=== PATIENT | female | born 1990 | race Caucasian/White ===

== ENCOUNTER 2016-10-05 08:34 | Emergency (ER) | payer MEDICAID, BC ==
[2010-01-28 19:28] VITALS: BMI 22.6
== END 2016-10-05 12:00 | disposition home or self-care (01) ==
LOC: D.ER 08:34
DX: M25.462 Effusion, left knee (principal); F31.9 Bipolar disorder, unspecified; F41.9 Anxiety disorder, unspecified; E03.9 Hypothyroidism, unspecified

== ENCOUNTER 2017-01-02 20:11 | Emergency (ER) | payer MEDICAID, BC ==
[2010-01-28 19:28] VITALS: BMI 22.6
== END 2017-01-02 21:20 | disposition home or self-care (01) ==
LOC: D.ER 20:11
DX: L73.9 Follicular disorder, unspecified (principal); F31.9 Bipolar disorder, unspecified; F32.9 Major depressive disorder, single episode, unspecified; F41.9 Anxiety disorder, unspecified; E03.9 Hypothyroidism, unspecified

== ENCOUNTER 2017-10-07 17:13 | Emergency (ER) | payer MEDICAID, BC ==
[2010-01-28 19:28] VITALS: BMI 22.6
== END 2017-10-07 19:08 | disposition home or self-care (01) ==
LOC: D.ER 17:13
DX: J11.1 Influenza due to unidentified influenza virus with other respiratory manifestations (principal); J02.9 Acute pharyngitis, unspecified; R05 Cough; R50.9 Fever, unspecified

== ENCOUNTER 2017-12-09 22:04 | Emergency (ER) | payer BC, MEDICAID ==
[2010-01-28 19:28] VITALS: BMI 22.6
== END 2017-12-09 23:15 | disposition home or self-care (01) ==
LOC: D.ER 22:04
DX: S90.122A Contusion of left lesser toe(s) without damage to nail, initial encounter (principal); W20.8XXA Other cause of strike by thrown, projected or falling object, initial encounter; Y93.89 Activity, other specified; Y92.019 Unspecified place in single-family (private) house as the place of occurrence of the external cause; E03.9 Hypothyroidism, unspecified

== ENCOUNTER 2017-12-19 20:07 | Emergency (ER) | payer BC, MEDICAID ==
[2010-01-28 19:28] VITALS: BMI 22.6
== END 2017-12-19 21:31 | disposition home or self-care (01) ==
LOC: D.ER 20:07
DX: S63.92XA Sprain of unspecified part of left wrist and hand, initial encounter (principal); W23.0XXA Caught, crushed, jammed, or pinched between moving objects, initial encounter; Y93.89 Activity, other specified; Y92.89 Other specified places as the place of occurrence of the external cause

== ENCOUNTER 2018-03-28 15:15 | Emergency (ER) | payer BC ==
[~2018-03-28] VITALS: Ht 160 cm; Wt 90.0 kg
[2018-03-28 15:21] VITALS: Ht 160 cm; Wt 90.0 kg
[2018-03-28] MEDS ORDERED: LEVOTHYROXINE50 MCG PO (15:22)
[2018-03-28] MEDS ORDERED: PROZAC20 MG PO (15:22)
[2018-03-28] MEDS ORDERED: ABILIFY2 MG PO (15:23)
[2018-03-28] MEDS ORDERED: CLEOCIN HCL300 MG PO (16:37)
[2018-03-28] MEDS ORDERED: ULTRAM50 MG PO (16:57)
[2018-03-28 17:52] VITALS: BP 125/70
== END 2018-03-28 17:28 | disposition home or self-care (01) ==
LOC: D.ER 15:15
DX: L02.31 Cutaneous abscess of buttock (principal)

== ENCOUNTER 2018-11-20 00:34 | Observation (INO) | payer BC ==
[~2018-11-20] VITALS: Ht 160 cm; Wt 81.4 kg
[~2018-11-20 00:34] MED LIST: ABILIFY2 MG PO; CLEOCIN HCL300 MG PO; LEVOTHYROXINE50 MCG PO; PROZAC20 MG PO; ULTRAM50 MG PO
[2018-11-20 00:56] LABS: BASOPHILS 0.5 % (0-2); EOSINOPHILS 3.3 % (0-7); HEMATOCRIT 42.1 % (36.0-48.0); HEMOGLOBIN 14.6 g/dL (12-16); IMMATURE GRANULOCYTES 0.4 % (0-5); LYMPHOCYTES 24.7 % (15-50); MCH 30.2 pg (26.0-34.0); MCHC 34.7 g/dL (31.0-37.0); MCV 87.2 fL (80.0-100.0); MEAN PLATELET VOLUME 9.6 fL (7.4-10.4); NEUTROPHILS 64.1 % (40-80); RBC 4.83 10x6/uL (4.00-5.40); RDW 12.3 % (11.5-14.5); WBC 10.7 10x3/uL (4.8-10.8)
[2018-11-20 01:02] LABS: PLATELET COUNT 249 10x3/uL (130-400)
[2018-11-20 01:13] LABS: ALKALINE PHOSPHATASE 106 U/L (46-116); ALT (SGPT) 90 U/L (10-68); BILIRUBIN - TOTAL 0.24 mg/dL (0.2-1.3); CALC OSMOLALITY 287 mosm/kg (275-300); CALCIUM 9.3 mg/dL (8.5-10.1); CARBON DIOXIDE 26.1 mmol/L (21.0-32.0); CHLORIDE - SERUM 105 mmol/L (98-107); CREATININE - SERUM 0.8 mg/dL (0.6-1.3); POTASSIUM - SERUM 3.9 mmol/L (3.5-5.1); PROTEIN - SERUM 7.9 g/dL (6.4-8.2); SODIUM 141 mmol/L (136-145); UREA NITROGEN 18 mg/dL (7-18); eGFR NON AFRICAN AMERICAN 90 mL/min (90-120)
[2018-11-20 01:14] LABS: GLUCOSE 182 mg/dL (74-106)
[2018-11-20 02:35] VITALS: BP 146/72; BMI 31.9
[2018-11-20 04:00] VITALS: BP 140/72
[2018-11-20 07:58] VITALS: BP 139/72
--- NOTE | 2018-11-20 08:03 | NUR ---
RECIEVED BEDSIDE REPORT. AM ROUNDS COMPLETED. VSS, AAOX3, NO S/S OF DISTRESS, RR EVEN AND UNLABORED. PT C/O NOT GETTING ENOUGH SLEEP LAST NIGHT AND STATES THAT SHE WOULD LIKE TO SPEAK WITH THE MD. PT DENIES ANY FURTHER NEEDS AT THE MOMENT. WILL CPOC. CL IN REACH, BED IN LOW, SR UP X2.
[2018-11-20 13:13] VITALS: Ht 160 cm; Wt 81.4 kg
[2018-11-20 13:34] VITALS: BP 130/74
[2018-11-20 16:00] VITALS: BP 134/83
--- NOTE | 2018-11-20 17:00 | NUR ---
FAMILY MEMBER BROUGHT DINNER FOR PT. PT CURRENTLY SITTING UP IN BED. DENIES ANY FURTHER NEEDS AT THIS TIME. CL IN REACH, BED IN LOW.
--- NOTE | 2018-11-20 19:45 | NUR ---
PT ALERT AND ORIENTED X4. PT DENIES ANY PAIN OR NEEDS AT THIS TIME. BED LOW CALL LIGHT WITHIN REACH. AT BEDSIDE. WILL CONTINUE TO MONITOR.
--- NOTE | 2018-11-20 21:02 | NUR ---
PT BROUGHT PT FOOD. NO S/S OF DISTRESS. VS STABLE. BED LOW CALL LIGHT WITHIN REACH. WILL CONTINUE TO MONITOR.
[2018-11-21 00:36] VITALS: BP 117/59
--- NOTE | 2018-11-21 00:48 | NUR ---
PT RESTING IN BED RR EVEN AND UNLABORED. PT RUNNING [address] ON TELEMETRY. PT DENIES ANY PAIN OR NEEDS AT THIS TIME. BED LOW CALL LIGHT WITHIN REACH. WILL CONTINUE TO MONITOR.
--- NOTE | 2018-11-21 02:26 | NUR ---
I AGREE WITH POWERHOUSE ENGINEER ASSESSMENT THIS SHIFT.
[2018-11-21 05:26] VITALS: BP 118/64
[2018-11-21 07:00] LABS: BASOPHILS 0.1 % (0-2); EOSINOPHILS 0 % (0-7); HEMATOCRIT 40.9 % (36.0-48.0); HEMOGLOBIN 14.2 g/dL (12-16); IMMATURE GRANULOCYTES 0.4 % (0-5); LYMPHOCYTES 8.8 % (15-50); MCH 30.5 pg (26.0-34.0); MCHC 34.7 g/dL (31.0-37.0); MEAN PLATELET VOLUME 9.8 fL (7.4-10.4); MONOCYTES 3.4 % (2-11); NEUTROPHILS 87.3 % (40-80); PLATELET COUNT 284 10x3/uL (130-400); RBC 4.65 10x6/uL (4.00-5.40); RDW 12.5 % (11.5-14.5)
[2018-11-21 07:11] LABS: WBC 14.5 10x3/uL (4.8-10.8)
[2018-11-21 07:35] LABS: ALBUMIN 3.7 g/dL (3.4-5.0); ALKALINE PHOSPHATASE 85 U/L (46-116); ALT (SGPT) 98 U/L (10-68); BILIRUBIN - TOTAL 0.48 mg/dL (0.2-1.3); CARBON DIOXIDE 19.7 mmol/L (21.0-32.0); CHLORIDE - SERUM 101 mmol/L (98-107); CREATININE - SERUM 0.9 mg/dL (0.6-1.3); POTASSIUM - SERUM 3.9 mmol/L (3.5-5.1); PROTEIN - SERUM 7.7 g/dL (6.4-8.2); SODIUM 136 mmol/L (136-145); UREA NITROGEN 17 mg/dL (7-18); eGFR NON AFRICAN AMERICAN 79 mL/min (90-120)
[2018-11-21 07:36] LABS: CALC OSMOLALITY 286 mosm/kg (275-300); GLUCOSE 333 mg/dL (74-106)
--- NOTE | 2018-11-21 08:04 | NUR ---
RESTING QUIETLY IN BED, ALERT, ORIENTED X 3, DENIES PAIN AND NEEDS, CALL LIGHT WITHIN REACH, INSTRUCTED TO CALL WITH NEEDS.
[2018-11-21 08:51] VITALS: BP 118/70
[2018-11-21 13:34] VITALS: BP 124/86
--- NOTE | 2018-11-21 15:20 | NUR ---
DISCHARGE TEACHING DONE, NO NEW PRESCRIPTIONS NOTED, PATIENT INSTRUCTED TO F/U WITH PCP IN ONE WEEK WITH PATIENT VOICING UNDERSTANDING. PERSONAL BELONGINGS RETURNED TO PATIENT, PATIENT DISCHARGED FROM FACILITY, PERSONAL AUTO IN PARKING LOT. PATIENT ALERT, ORIENTED, AMBULATORY. PATIENT DENIED NEED FOR SOMEONE TO DRIVE HER HOME AND STATED THAT SHE WOULD DRIVE SELF. NO S/S DISTRESS, DENIES PAIN, NO DYSPNEA OR FURTHER ISSUES NOTED.
--- NOTE | 2018-11-22 13:59 | MORECARE ---
CASE MANAGEMENT DISCHARGE SUMMARY PATIENT: SIMRAN SAL UNIT: [id number] ADM DATE: 11/20/18 AGE: 28 : [birth year] SEX: F ROOM/BED: D.1211 AUTHOR: FLOR HITCHCOCK PHYSICIAN: REFERRING PHYSICIAN: VEENA PERSAUD MD DATE OF SERVICE: 11/22/18 Discharge Plan Patient Name: SIMRAN SAL Facility: [facility]:[place] : 1990 Planned Disposition: Home Anticipated Discharge Date: 11/21/18 Discharge Date: 11/21/2018 Expected LOS: 1 Initial Reviewer: [email or web address] Initial Review Date: 11/20/2018 Generated: 11/22/18 2:59 pm Patient Name: SIMRAN SAL Page [id number] at 1359 All edits/amendments must be made on the electronic document DICTATION DATE: 11/22/18 1359 ENGINE WIPER: DM 11/22/18 1359 RPT#: [id number] DC DATE:11/21/18 STATUS: DIS IN [facility] [address] [place] [address] END OF REPORT
== END 2018-11-21 15:33 | disposition home or self-care (01) ==
LOC: D.ER 00:34 → D.M3 01:59 → OBSVTIME 01:59 → D.M3 11-21 15:33
PROVIDERS: Family Medicine; ADMIT Internal Medicine Nephrology; ATTEND Internal Medicine Nephrology
DX: T78.3XXA Angioneurotic edema, initial encounter (principal); E27.40 Unspecified adrenocortical insufficiency; F32.9 Major depressive disorder, single episode, unspecified; F41.9 Anxiety disorder, unspecified

== ENCOUNTER 2018-12-24 21:35 | Emergency (ER) | payer BC ==
[2018-12-24 21:50] VITALS: Ht 160 cm
[2018-12-24] MEDS ORDERED: IBUPROFEN800 MG PO (23:03)
[2018-12-24] MEDS ORDERED: CYCLOBENZAPRINE10 MG PO (23:03)
[2018-12-24] MEDS ORDERED: ACETAMINOPHEN500 M1 PO (23:03)
[2018-12-24 23:21] VITALS: BP 120/80
== END 2018-12-24 23:21 | disposition home or self-care (01) ==
LOC: D.ER 21:35
DX: S93.401A Sprain of unspecified ligament of right ankle, initial encounter (principal); W18.30XA Fall on same level, unspecified, initial encounter; Y93.89 Activity, other specified; Y92.89 Other specified places as the place of occurrence of the external cause; M25.571 Pain in right ankle and joints of right foot

== ENCOUNTER 2019-03-03 13:03 | Observation (INO) | payer BC ==
[~2019-03-03] VITALS: Ht 160 cm; Wt 89.5 kg
[2019-03-03] VITALS (7 sets, daily range): BP systolic 119–152; BP diastolic 64–89; Ht 160 cm; Wt 89.5 kg
[~2019-03-03 13:03] MED LIST changes: +ACETAMINOPHEN500 M1 PO; +CYCLOBENZAPRINE10 MG PO; +IBUPROFEN800 MG PO
[2019-03-03 13:29] LABS: BASOPHILS 0.4 % (0-2); HEMATOCRIT 41.1 % (36.0-48.0); HEMOGLOBIN 14.7 g/dL (12-16); IMMATURE GRANULOCYTES 0.2 % (0-5); LYMPHOCYTES 13.8 % (15-50); MCH 30.2 pg (26.0-34.0); MCHC 35.8 g/dL (31.0-37.0); MCV 84.4 fL (80.0-100.0); MEAN PLATELET VOLUME 9.4 fL (7.4-10.4); MONOCYTES 7.6 % (2-11); PLATELET COUNT 265 10x3/uL (130-400); RBC 4.87 10x6/uL (4.00-5.40); RDW 11.9 % (11.5-14.5); WBC 13.5 10x3/uL (4.8-10.8)
[2019-03-03 13:51] LABS: ALBUMIN 4.4 g/dL (3.4-5.0); ANION GAP 15.6 mmol/L (8-16); BILIRUBIN - TOTAL 0.63 mg/dL (0.2-1.3); CALCIUM 10.7 mg/dL (8.5-10.1); CARBON DIOXIDE 23.2 mmol/L (21.0-32.0); POTASSIUM - SERUM 3.8 mmol/L (3.5-5.1); PROTEIN - SERUM 8.1 g/dL (6.4-8.2)
[2019-03-03 15:06] LABS: HCG URINE NEGATIVE (NEGATIVE)
[2019-03-03 15:20] LABS: APPEARANCE CLEAR (CLEAR); BILIRUBIN NEGATIVE (NEGATIVE); COLOR YELLOW (YELLOW); GLUCOSE NEGATIVE (NEGATIVE); KETONE NEGATIVE (NEGATIVE); NITRITE NEGATIVE (NEGATIVE); PROTEIN NEGATIVE (NEGATIVE); SPECIFIC GRAVITY 1.015 (1.005-1.020); UROBILINOGEN NORMAL (NORMAL)
--- NOTE | 2019-03-03 17:02 | NUR ---
RUBEN MEEHAN FROM OR HERE. PT TRANSPORTED TO OR STABLE. NS INFUSING W/O UPON TX. ALL COMPLETED CONSENTS SENT WITH PT
--- NOTE | 2019-03-03 19:30 | NUR ---
PT TO FLOOR. IN ROOM WITH FAMILY. STATES PAIN IS TOLERABLE BUT RATES 8/10 AT THIS TIME. SCD'S ON BILATERALLY. VSS. RIGHT AC IV INFUSING. PATENT WITH DRESSING ADHERED TO SKIN. DENIES FURTHER NEEDS AT THIS TIME. INSTRUCTED HOW TO USE CALL LIGHT. PATIENT PROVIDES RETURN DEMONSTRATION. EDUCATION PROVIDED ON SPLINTING, EARLY AMBULATION. GOAL FOR THIS SHIFT IS TCDB, SPLINTING, AMBULATION TO BATHROOM, AND PAIN CONTROL. PATIENT VERBALIZES UNDERSTANDING.
[2019-03-04] VITALS: BP 124/74
--- NOTE | 2019-03-04 03:59 | NUR ---
REQUESTED PAIN MEDICINE. ADMINISTERED ORDERED.
[2019-03-04 04:00] VITALS: BP 130/76
--- NOTE | 2019-03-04 07:53 | NUR ---
RESTING IN BED. LUNGS CLEAR BILATERALLY IN ALL MONTEZ. HEART SOUNDS S1 AND S2 HEARD IN ALL MONTEZ. BOWEL SOUNDS ACTIVE X 4. ABD DISTENDED FROM PROCEDURE YESTERDAY. REQUESTS PAIN MEDICATION WITH AM MEDS. DENIES FURTHER NEEDS. BED LOW. CALL MACK AND PERSONAL ITEMS IN REACH. WILL CONTINUE TO MONITOR.
[2019-03-04] MEDS ORDERED: HYDROCODON-ACE1 EA10 PO (08:02)
--- NOTE | 2019-03-04 08:02 | OP ---
PATIENT NAME: SIMRAN SAL MEDICAL RECORD: [id number] :89 LOCATION:[id number] ADMISSION DATE:03/03/19 SURGEON: BLAINE URIOSTEGUI MD DATE OF OPERATION: 03/03/2019 PREOPERATIVE DIAGNOSES: 1. Acute appendicitis with localized peritonitis. 2. Hypothyroidism. POSTOPERATIVE DIAGNOSES: 1. Acute appendicitis with localized peritonitis. 2. Hypothyroidism. PROCEDURE: Laparoscopic appendectomy. SURGEON: Blaine Uriostegui MD REPORT OF PROCEDURE: The patient's abdomen was prepped and draped in sterile fashion. A cutdown was made on the inferior aspect of the umbilicus, 0 Vicryls were placed on the fascia bilaterally and the fascia was incised with a 15-blade. I then bluntly entered the peritoneal cavity and placed a 12-mm Yovanny port. Under direct visualization, a 5-mm trocar was placed in the left lower quadrant and another was placed in the suprapubic region. The appendix was easily visualized and noted to be acutely inflamed. There was no sign of perforation or gangrene. A window was made in the mesoappendix at the base of the appendix and the appendix was transected at the cecal base using a 45 blue load Endo-AARON stapler. The mesoappendix was then transected with a 45 white load Endo-AARON stapler. The appendix was placed into an Endo Catch bag. We inspected the staple line and it showed that there was a pulsatile bleeder at its most inferior aspect and this was treated with electrocautery. At this point, there was no sign of any active bleeding. We irrigated out the right lower quadrant and assured that there was no evidence of any other masses or lesions around the liver on the right side of the abdomen. At this point, the ports and insufflation were then removed. The appendix was taken out through the umbilicus. The umbilical fascia was closed with interrupted 0 Vicryls times 3. The wounds were then irrigated out with normal saline and infused with 10 mL of 0.25% Marcaine with epinephrine. The skin incisions were closed with subcutaneous 5-0 Monocryl and dressed appropriately. COMPLICATIONS: None. CONDITION: Stable. ANESTHESIA: General endotracheal and local. BLOOD LOSS: Minimal. TRANSINT:[id number] Voice Confirmation ID: [id number] DOCUMENT ID: [id number] OPERATIVE REPORT [id number] SIMRAN SAL CHRISTIAN MD at 0802 CC: [id number] DICTATION DATE: 03/03/191816 IMPROVEMENT LEADER: 03/03/19 183 ADM IN [facility] [address] [place] [id number]
--- NOTE | 2019-03-04 10:38 | NUR ---
DISCHARGE EDUCATION PROVIDED BOTH WRITTEN AND VERBAL. VERBALIZED UNDERSTANDING. DENIES FURTHER NEEDS. IV REMOVED WITH TIP INTACT. DISCHARGED HOME WITH ALL BELONGINGS WITH FAMILY MEMBER.
== END 2019-03-04 10:40 | disposition home or self-care (01) ==
LOC: D.ER 13:03 → D.MS 17:13 → OBSVTIME 17:13 → D.MS 17:13
PROVIDERS: Family Medicine; ADMIT Surgery; ATTEND Surgery
DX: K35.30 Acute appendicitis with localized peritonitis, without perforation or gangrene (principal); E03.9 Hypothyroidism, unspecified

== ENCOUNTER 2020-05-13 22:07 | Emergency (ER) | payer BC ==
[~2020-05-13] VITALS: Ht 160 cm; Wt 78.9 kg
[~2020-05-13 22:07] MED LIST changes: +HYDROCODON-ACE1 EA10 PO
[2020-05-13 22:25] VITALS: Ht 160 cm; Wt 78.9 kg
[2020-05-13] MEDS ORDERED: ULTRAM50 MG PO (23:20)
[2020-05-14 00:08] VITALS: BP 137/80
== END 2020-05-14 00:08 | disposition home or self-care (01) ==
LOC: D.ER 22:07
DX: M12.811 Other specific arthropathies, not elsewhere classified, right shoulder (principal); S46.002A Unspecified injury of muscle(s) and tendon(s) of the rotator cuff of left shoulder, initial encounter; V89.2XXA Person injured in unspecified motor-vehicle accident, traffic, initial encounter

== ENCOUNTER → 2020-05-21 07:43 | Outpatient (CLI) | payer BC ==
[2020-05-13 22:25] VITALS: BMI 34.9
== END | disposition home or self-care (01) ==
LOC: D.MRI 07:43
PROVIDERS: ATTEND Orthopaedic Surgery
DX: M24.812 Other specific joint derangements of left shoulder, not elsewhere classified (principal)